=== PATIENT | female | born 1995 | race Caucasian/White ===

== ENCOUNTER 2023-07-07 06:45 | Observation (INO) | payer OTHER ==
--- OUTSIDE RECORDS SUMMARY | ~2023-07-07 | XMS | Continuity of Care Document ---
Demographics + + + | Address | [address] | | | [place] [address] | + + + | Preferred Language | Unknown | + + + | Marital Status | | + + + | Mu-Ism Affiliation | Unknown | + + + | Race | White | + + + | Ethnic Group | Unknown | + + + Author + + + | Author | [facility] | + + + | Organization | [facility] | + + + | Address | [address] [facility] | | | [place] [address] | + + + | Phone | | + + + Care Team Providers + + + + | Care Infant Toddler Lead Teacher Name | Role | Phone | + + + + Unavailable | Unavailable | + + + + Unavailable | Unavailable | + + + + Allergies and Intolerances + + + + + + | date | description | facility | reaction | severity | + + + + + + | (no date) | Hives / | [facility] | (no reaction) | (no severity) | | | Urticaria | [facility] | | | + + + + + + | (no date) | Cleocin | [facility] | (no reaction) | (no severity) | | | | [facility] | | | + + + + + + | (no date) | Hives | [facility] | (no reaction) | (no severity) | | | | [facility] | | | + + + + + + | (no date) | Shortness of | [facility] | (no reaction) | (no severity) | | | Breath / | [facility] | | | | | Dyspnea | | | | + + + + + + | (no date) | Shortness of | [facility] | (no reaction) | (no severity) | | | Breath | [facility] | | | + + + + + + | (no date) | Penicillin G | [facility] | (no reaction) | (no severity) | | | Benzathine | [facility] | | | | | [id number] U/ML | | | | | | Intramuscular | | | | | | Suspension | | | | + + + + + + | (no date) | Clindamycin | [facility] | (no reaction) | (no severity) | | | HCl 150 MG Oral | [facility] | | | | | Capsule | | | | + + + + + + Encounters No information. Functional Status No information. Immunizations No information. Medications + + + + | date | description | facility | + + + + | 2019-01-05 00:00 | ondansetron 4 MG | [facility] | | | Disintegrating Oral Tablet | | + + + + | 2019-04-13 00:00 | ondansetron 4 MG | [facility] | | | Disintegrating Oral Tablet | | + + + + | 2019-06-12 00:00 | ondansetron 4 MG | [facility] | | | Disintegrating Oral Tablet | | + + + + | 2019-07-14 00:00 | ondansetron 4 MG | [facility] | | | Disintegrating Oral Tablet | | + + + + | 2019-10-16 00:00 | ondansetron 4 MG | [facility] | | | Disintegrating Oral Tablet | | + + + + | 2020-02-21 00:00 | ondansetron 4 MG | [facility] | | | Disintegrating Oral Tablet | | + + + + | 2020-07-10 00:00 | ondansetron 4 MG | [facility] | | | Disintegrating Oral Tablet | | + + + + | 2021-06-18 00:00 | ondansetron 4 MG | [facility] | | | Disintegrating Oral Tablet | | + + + + | 2019-12-25 00:00 | methylphenidate | [facility] | | | hydrochloride 10 MG Oral | | | | Tablet | | + + + + | 2020-03-11 00:00 | methylphenidate | [facility] | | | hydrochloride 10 MG Oral | | | | Tablet | | + + + + | 2020-09-12 00:00 | methylphenidate | [facility] | | | hydrochloride 10 MG Oral | | | | Tablet | | + + + + | 2020-12-03 00:00 | methylphenidate | [facility] | | | hydrochloride 10 MG Oral | | | | Tablet | | + + + + | 2022-09-09 00:00 | phenazopyridine | [facility] | | | hydrochloride 100 MG Oral | | | | Tablet | | + + + + | 2021-05-14 00:00 | phenazopyridine | [facility] | | | hydrochloride 200 MG Oral | | | | Tablet [Pyridium] | | + + + + | 2020-09-19 00:00 | phenazopyridine | [facility] | | | hydrochloride 200 MG | | | | Delayed Release Oral Tablet | | | | | | + + + + | 2019-12-25 00:00 | Methylphenidate HCl 10 MG | [facility] | | | Oral Tablet | | + + + + | 2020-03-11 00:00 | Methylphenidate HCl 10 MG | [facility] | | | Oral Tablet | | + + + + | 2020-09-12 00:00 | Methylphenidate HCl 10 MG | [facility] | | | Oral Tablet | | + + + + | 2020-12-03 00:00 | Methylphenidate HCl 10 MG | [facility] | | | Oral Tablet | | + + + + | 2022-03-17 00:00 | Minocycline HCl 50 MG Oral | [facility] | | | Capsule | | + + + + | 2021-05-14 00:00 | Nitrofurantoin | [facility] | | | Macrocrystal 100 MG Oral | | | | Capsule | | + + + + | 2022-09-09 00:00 | Nitrofurantoin | [facility] | | | Macrocrystal 100 MG Oral | | | | Capsule | | + + + + | 2020-09-19 00:00 | nitrofurantoin, | [facility] | | | macrocrystals 25 MG / | | | | nitrofurantoin, monohydrate | | | | 75 MG Oral Capsule | | + + + + | 2021-05-14 00:00 | nitrofurantoin, | [facility] | | | macrocrystals 100 MG Oral | | | | Capsule | | + + + + | 2022-09-09 00:00 | nitrofurantoin, | [facility] | | | macrocrystals 100 MG Oral | | | | Capsule | | + + + + | 2022-09-09 00:00 | Phenazopyridine HCl 100 MG | [facility] | | | Oral Tablet | | + + + + | 2020-09-19 00:00 | Phenazopyridine HCl 200 MG | [facility] | | | Oral Tablet | | + + + + | 2020-12-03 00:00 | Propranolol HCl 10 MG Oral | [facility] | | | Tablet | | + + + + | 2021-10-02 00:00 | Propranolol HCl 10 MG Oral | [facility] | | | Tablet | | + + + + | 2021-05-14 00:00 | Pyridium 200 MG Oral | [facility] | | | Tablet | | + + + + | 2022-03-17 00:00 | minocycline 50 MG Oral | [facility] | | | Capsule | | + + + + | 2021-06-18 00:00 | Nurtec 75 MG Oral Tablet | [facility] | | | Disintegrating | | + + + + | 2021-12-25 00:00 | Nurtec 75 MG Oral Tablet | [facility] | | | Disintegrating | | + + + + | 2022-09-21 00:00 | Nurtec 75 MG Oral Tablet | [facility] | | | Disintegrating | | + + + + | 2021-10-02 00:00 | rizatriptan 10 MG Oral | [facility] | | | Tablet [Maxalt] | | + + + + | 2021-06-18 00:00 | Rimegepant 75 MG | [facility] | | | Disintegrating Oral Tablet | | | | [Nurtec] | | + + + + | 2021-12-25 00:00 | Rimegepant 75 MG | [facility] | | | Disintegrating Oral Tablet | | | | [Nurtec] | | + + + + | 2022-09-21 00:00 | Rimegepant 75 MG | [facility] | | | Disintegrating Oral Tablet | | | | [Nurtec] | | + + + + | 2021-06-18 00:00 | rimegepant 75 MG | [facility] | | | Disintegrating Oral Tablet | | | | [Nurtec] | | + + + + | 2021-12-25 00:00 | rimegepant 75 MG | [facility] | | | Disintegrating Oral Tablet | | | | [Nurtec] | | + + + + | 2022-09-21 00:00 | rimegepant 75 MG | [facility] | | | Disintegrating Oral Tablet | | | | [Nurtec] | | + + + + | 2020-09-19 00:00 | Nitrofurantoin Monohyd | [facility] | | | Macro 100 MG Oral Capsule | | + + + + | 2021-01-06 00:00 | sumatriptan 100 MG Oral | [facility] | | | Tablet | | + + + + | 2019-12-25 00:00 | tizanidine 2 MG Oral | [facility] | | | Tablet | | + + + + | 2020-06-14 00:00 | tizanidine 2 MG Oral | [facility] | | | Tablet | | + + + + | 2020-09-06 00:00 | tizanidine 2 MG Oral | [facility] | | | Tablet | | + + + + | 2021-01-06 00:00 | SUMAtriptan Succinate 100 | [facility] | | | MG Oral Tablet | | + + + + | 2019-12-25 00:00 | tiZANidine HCl 2 MG Oral | [facility] | | | Tablet | | + + + + | 2020-06-14 00:00 | tiZANidine HCl 2 MG Oral | [facility] | | | Tablet | | + + + + | 2020-09-06 00:00 | tiZANidine HCl 2 MG Oral | [facility] | | | Tablet | | + + + + | 2021-10-02 00:00 | Maxalt 10 MG Oral Tablet | [facility] | | | | | + + + + | 2019-10-16 00:00 | Ondansetron 4 MG Oral | [facility] | | | Tablet Disintegrating | | + + + + | 2020-02-21 00:00 | Ondansetron 4 MG Oral | [facility] | | | Tablet Disintegrating | | + + + + | 2020-07-10 00:00 | [facility]etron 4 MG Oral | [facility] | | | Tablet Disintegrating | | + + + + | 2021-06-18 00:00 | Ondansetron 4 MG Oral | [facility] | | | Tablet Disintegrating | | + + + + | 2019-01-05 00:00 | Ondansetron 4MG Oral | [facility] | | | Tablet Disintegrating | | + + + + | 2019-04-13 00:00 | Ondansetron 4MG Oral | [facility] | | | Tablet Disintegrating | | + + + + | 2019-06-12 00:00 | Ondansetron 4MG Oral | [facility] | | | Tablet Disintegrating | | + + + + | 2019-07-14 00:00 | Ondansetron 4MG Oral | [facility] | | | Tablet Disintegrating | | + + + + | 2022-06-22 00:00 | Adderall XR 20 MG Oral | [facility] | | | Capsule Extended Release 24 | | | | Hour | | + + + + | 2019-11-13 00:00 | Adderall XR 30 MG OR CP24 | [facility] | | | | | + + + + | 2019-09-18 00:00 | Adderall XR 30 MG Oral | [facility] | | | Capsule Extended Release 24 | | | | Hour | | + + + + | 2019-11-13 00:00 | Adderall XR 30 MG Oral | [facility] | | | Capsule Extended Release 24 | | | | Hour | | + + + + | 2019-12-25 00:00 | Adderall XR 30 MG Oral | [facility] | | | Capsule Extended Release 24 | | | | Hour | | + + + + | 2020-03-11 00:00 | Adderall XR 30 MG Oral | [facility] | | | Capsule Extended Release 24 | | | | Hour | | + + + + | 2020-04-08 00:00 | Adderall XR 30 MG Oral | [facility] | | | Capsule Extended Release 24 | | | | Hour | | + + + + | 2020-05-13 00:00 | Adderall XR 30 MG Oral | [facility] | | | Capsule Extended Release 24 | | | | Hour | | + + + + | 2020-06-14 00:00 | Adderall XR 30 MG Oral | [facility] | | | Capsule Extended Release 24 | | | | Hour | | + + + + | 2020-09-12 00:00 | Adderall XR 30 MG Oral | [facility] | | | Capsule Extended Release 24 | | | | Hour | | + + + + | 2020-12-03 00:00 | Adderall XR 30 MG Oral | [facility] | | | Capsule Extended Release 24 | | | | Hour | | + + + + | 2021-03-14 00:00 | Adderall XR 30 MG Oral | [facility] | | | Capsule Extended Release 24 | | | | Hour | | + + + + | 2021-06-18 00:00 | Adderall XR 30 MG Oral | [facility] | | | Capsule Extended Release 24 | | | | Hour | | + + + + | 2021-10-02 00:00 | Adderall XR 30 MG Oral | [facility] | | | Capsule Extended Release 24 | | | | Hour | | + + + + | 2021-12-25 00:00 | Adderall XR 30 MG Oral | [facility] | | | Capsule Extended Release 24 | | | | Hour | | + + + + | 2022-03-17 00:00 | Adderall XR 30 MG Oral | [facility] | | | Capsule Extended Release 24 | | | | Hour | | + + + + | 2022-06-02 00:00 | Adderall XR 30 MG Oral | [facility] | | | Capsule Extended Release 24 | | | | Hour | | + + + + | 2022-09-21 00:00 | Adderall XR 30 MG Oral | [facility] | | | Capsule Extended Release 24 | | | | Hour | | + + + + | 2022-12-04 00:00 | Adderall XR 30 MG Oral | [facility] | | | Capsule Extended Release 24 | | | | Hour | | + + + + | 2019-01-10 00:00 | Adderall XR 30MG Oral | [facility] | | | Capsule Extended Release 24 | | | | Hour | | + + + + | 2019-03-30 00:00 | Adderall XR 30MG Oral | [facility] | | | Capsule Extended Release 24 | | | | Hour | | + + + + | 2019-06-26 00:00 | Adderall XR 30MG Oral | [facility] | | | Capsule Extended Release 24 | | | | Hour | | + + + + | 2020-12-03 00:00 | propranolol hydrochloride | [facility] | | | 10 MG Oral Tablet | | + + + + | 2021-10-02 00:00 | propranolol hydrochloride | [facility] | | | 10 MG Oral Tablet | | + + + + | 2022-06-22 00:00 | 24 HR amphetamine aspartate | [facility] | | | 5 MG / amphetamine sulfate | | | | 5 MG / dextroamphetamine | | | | saccharate 5 MG / | | | | dextroamphetamine sulfate 5 | | | | MG Extended Release Oral | | | | Capsule [Adderall] | | + + + + | 2019-01-10 00:00 | 24 HR amphetamine aspartate | [facility] | | | 7.5 MG / amphetamine | | | | sulfate 7.5 MG / | | | | dextroamphetamine | | | | saccharate 7.5 MG / | | | | dextroamphetamine sulfate | | | | 7.5 MG Extended Release | | | | Oral Capsule [Adderall] | | + + + + | 2019-03-30 00:00 | 24 HR amphetamine aspartate | [facility] | | | 7.5 MG / amphetamine | | | | sulfate 7.5 MG / | | | | dextroamphetamine | | | | saccharate 7.5 MG / | | | | dextroamphetamine sulfate | | | | 7.5 MG Extended Release | | | | Oral Capsule [Adderall] | | + + + + | 2019-06-26 00:00 | 24 HR amphetamine aspartate | [facility] | | | 7.5 MG / amphetamine | | | | sulfate 7.5 MG / | | | | dextroamphetamine | | | | saccharate 7.5 MG / | | | | dextroamphetamine sulfate | | | | 7.5 MG Extended Release | | | | Oral Capsule [Adderall] | | + + + + | 2019-09-18 00:00 | 24 HR amphetamine aspartate | [facility] | | | 7.5 MG / amphetamine | | | | sulfate 7.5 MG / | | | | dextroamphetamine | | | | saccharate 7.5 MG / | | | | dextroamphetamine sulfate | | | | 7.5 MG Extended Release | | | | Oral Capsule [Adderall] | | + + + + | 2019-11-13 00:00 | 24 HR amphetamine aspartate | [facility] | | | 7.5 MG / amphetamine | | | | sulfate 7.5 MG / | | | | dextroamphetamine | | | | saccharate 7.5 MG / | | | | dextroamphetamine sulfate | | | | 7.5 MG Extended Release | | | | Oral Capsule [Adderall] | | + + + + | 2019-12-25 00:00 | 24 HR amphetamine aspartate | [facility] | | | 7.5 MG / amphetamine | | | | sulfate 7.5 MG / | | | | dextroamphetamine | | | | saccharate 7.5 MG / | | | | dextroamphetamine sulfate | | | | 7.5 MG Extended Release | | | | Oral Capsule [Adderall] | | + + + + | 2020-03-11 00:00 | 24 HR amphetamine aspartate | [facility] | | | 7.5 MG / amphetamine | | | | sulfate 7.5 MG / | | | | dextroamphetamine | | | | saccharate 7.5 MG / | | | | dextroamphetamine sulfate | | | | 7.5 MG Extended Release | | | | Oral Capsule [Adderall] | | + + + + | 2020-04-08 00:00 | 24 HR amphetamine aspartate | [facility] | | | 7.5 MG / amphetamine | | | | sulfate 7.5 MG / | | | | dextroamphetamine | | | | saccharate 7.5 MG / | | | | dextroamphetamine sulfate | | | | 7.5 MG Extended Release | | | | Oral Capsule [Adderall] | | + + + + | 2020-05-13 00:00 | 24 HR amphetamine aspartate | [facility] | | | 7.5 MG / amphetamine | | | | sulfate 7.5 MG / | | | | dextroamphetamine | | | | saccharate 7.5 MG / | | | | dextroamphetamine sulfate | | | | 7.5 MG Extended Release | | | | Oral Capsule [Adderall] | | + + + + | 2020-06-14 00:00 | 24 HR amphetamine aspartate | [facility] | | | 7.5 MG / amphetamine | | | | sulfate 7.5 MG / | | | | dextroamphetamine | | | | saccharate 7.5 MG / | | | | dextroamphetamine sulfate | | | | 7.5 MG Extended Release | | | | Oral Capsule [Adderall] | | + + + + | 2020-09-12 00:00 | 24 HR amphetamine aspartate | [facility] | | | 7.5 MG / amphetamine | | | | sulfate 7.5 MG / | | | | dextroamphetamine | | | | saccharate 7.5 MG / | | | | dextroamphetamine sulfate | | | | 7.5 MG Extended Release | | | | Oral Capsule [Adderall] | | + + + + | 2020-12-03 00:00 | 24 HR amphetamine aspartate | [facility] | | | 7.5 MG / amphetamine | | | | sulfate 7.5 MG / | | | | dextroamphetamine | | | | saccharate 7.5 MG / | | | | dextroamphetamine sulfate | | | | 7.5 MG Extended Release | | | | Oral Capsule [Adderall] | | + + + + | 2021-03-14 00:00 | 24 HR amphetamine aspartate | [facility] | | | 7.5 MG / amphetamine | | | | sulfate 7.5 MG / | | | | dextroamphetamine | | | | saccharate 7.5 MG / | | | | dextroamphetamine sulfate | | | | 7.5 MG Extended Release | | | | Oral Capsule [Adderall] | | + + + + | 2021-06-18 00:00 | 24 HR amphetamine aspartate | [facility] | | | 7.5 MG / amphetamine | | | | sulfate 7.5 MG / | | | | dextroamphetamine | | | | saccharate 7.5 MG / | | | | dextroamphetamine sulfate | | | | 7.5 MG Extended Release | | | | Oral Capsule [Adderall] | | + + + + | 2021-10-02 00:00 | 24 HR amphetamine aspartate | [facility] | | | 7.5 MG / amphetamine | | | | sulfate 7.5 MG / | | | | dextroamphetamine | | | | saccharate 7.5 MG / | | | | dextroamphetamine sulfate | | | | 7.5 MG Extended Release | | | | Oral Capsule [Adderall] | | + + + + | 2021-12-25 00:00 | 24 HR amphetamine aspartate | [facility] | | | 7.5 MG / amphetamine | | | | sulfate 7.5 MG / | | | | dextroamphetamine | | | | saccharate 7.5 MG / | | | | dextroamphetamine sulfate | | | | 7.5 MG Extended Release | | | | Oral Capsule [Adderall] | | + + + + | 2022-03-17 00:00 | 24 HR amphetamine aspartate | [facility] | | | 7.5 MG / amphetamine | | | | sulfate 7.5 MG / | | | | dextroamphetamine | | | | saccharate 7.5 MG / | | | | dextroamphetamine sulfate | | | | 7.5 MG Extended Release | | | | Oral Capsule [Adderall] | | + + + + | 2022-06-02 00:00 | 24 HR amphetamine aspartate | [facility] | | | 7.5 MG / amphetamine | | | | sulfate 7.5 MG / | | | | dextroamphetamine | | | | saccharate 7.5 MG / | | | | dextroamphetamine sulfate | | | | 7.5 MG Extended Release | | | | Oral Capsule [Adderall] | | + + + + | 2022-09-21 00:00 | 24 HR amphetamine aspartate | [facility] | | | 7.5 MG / amphetamine | | | | sulfate 7.5 MG / | | | | dextroamphetamine | | | | saccharate 7.5 MG / | | | | dextroamphetamine sulfate | | | | 7.5 MG Extended Release | | | | Oral Capsule [Adderall] | | + + + + | 2022-12-04 00:00 | 24 HR amphetamine aspartate | [facility] | | | 7.5 MG / amphetamine | | | | sulfate 7.5 MG / | | | | dextroamphetamine | | | | saccharate 7.5 MG / | | | | dextroamphetamine sulfate | | | | 7.5 MG Extended Release | | | | Oral Capsule [Adderall] | | + + + + | 2019-01-10 00:00 | Mirena 52MCG/24HR | [facility] | | | Intrauterine Intrauterine | | | | device | | + + + + | 2019-01-05 00:00 | Dextroamphetamine Sulfate | [facility] | | | ER 30mg Mouth/Throat | | | | Capsule | | + + + + | 2019-01-05 00:00 | SUMAtriptan 100mg Oral | [facility] | | | Tablet | | + + + + | 2019-07-25 00:00 | SUMAtriptan 100mg Oral | [facility] | | | Tablet | | + + + + Problems + + + + | date | description | facility | + + + + | 2023-02-12 10:53 | ENCOUNTER FOR | [facility] | | | SCREENING FOR UNCERTAIN | | | | DATES | | + + + + | 2023-02-12 10:53 | 8 WEEKS GESTATION OF | [facility] | | | | | + + + + | 2023-02-12 10:53 | 10 WEEKS GESTATION OF | [facility] | | | | | + + + + | 2023-04-29 11:43 | ENCNTR FOR SUPRVSN OF | [facility] | | | NORMAL FIRST PREG, SECOND | | | | TRIMESTER | | + + + + | 2023-04-29 11:43 | ENCNTR FOR SUPRVSN OF | [facility] | | | NORMAL FIRST PREG, | | + + + + | 2023-04-29 11:43 | 16 WEEKS GESTATION OF | [facility] | | | | | + + + + | 2023-04-29 12:00 | ENCNTR FOR SUPRVSN OF | [facility] | | | NORMAL FIRST PREG, | | + + + + | 2023-04-29 12:00 | 16 WEEKS GESTATION OF | [facility] | | | | | + + + + | 2023-06-04 09:47 | LOW LYING PLACENTA NOS OR | [facility] | | | WITHOUT HEMOR, SECOND | | | | TRIMESTER | | + + + + | 2023-06-04 09:47 | LOW LYING PLACENTA NOS OR | [facility] | | | WITHOUT HEMOR, | | + + + + | 2023-06-04 09:47 | 26 WEEKS GESTATION OF | [facility] | | | | | + + + + | 2023-06-04 10:00 | LOW LYING PLACENTA NOS OR | [facility] | | | WITHOUT HEMOR, | | + + + + Procedures + + + + | date | description | facility | + + + + | 2021-12-31 00:00 | COMPREHENSIVE METABOLIC | [facility] | | | PANEL - EXTERNAL | [facility] Lab | + + + + | 2021-12-31 00:00 | CBC WITH AUTO DIFFERENTIAL | [facility] | | | - EXTERNAL | [facility] | + + + + | 2021-12-31 00:00 | VITAMIN D 25-OH - EXTERNAL | [facility] | | | | [facility] | + + + + | 2021-12-31 00:00 | THYROID PROFILE - EXTERNAL | [facility] | | | | [facility] | + + + + | 2021-12-31 00:00 | LIPID PANEL - EXTERNAL | [facility] | | | | [facility] | + + + + | 2019-12-25 00:00 | History of surgery | [facility] | | | (situation) | | + + + + | 2019-12-25 00:00 | history of prior surgery | [facility] | | | [For Hx of Tx, use H | | | | prefix] | | + + + + Results/Labs +--------+--------+ +---------+--------+---------+ | test | date | facility | value | unit | notes | +--------+--------+ +---------+--------+---------+ + + | Result panel 1 | + + + + + + + + + | No Results | (no date) | [facility] | No Results | (missing) | (missing) | | | | [facility] | | | | | | | , [facility] | | | | + + + + + + + + + | Result panel 2 | + + + + + + + + + | No Results | (no date) | [facility] | No Results | (missing) | (missing) | | | | [facility] | | | | | | | [facility] | | | | + + + + + + + + + | Result panel 3 | + + + + + + + + + | Specimen | (no date) | [facility] | (missing) | (missing) | (missing) | | collection | | Good | | | | | (procedure) | | [facility] | | | | | [facility] | | | | | | | | | | | + + + + + + + + + | Result panel 4 | + + + + + + + + + | Specimen | (no date) | [facility] | (missing) | (missing) | (missing) | | collection | | Good | | | | | (procedure) | | [facility] | [facility] | [facility] | | | | | | | | | | | + + + + + + + + + | Result panel 5 | + + + + + + + + + | Specimen | (no date) | [facility] | (missing) | (missing) | (missing) | | collection | | Good | | | | | (procedure) | | [facility] | | | [facility] | | | | | | | | | | | + + + + + + + + + | Result panel 6 | + + + + + + + + + | No Results | (no date) | [facility] | No Results | (missing) | (missing) | | | | MEDICAL | | | | | | | [facility] | | | | + + + + + + + + + | Result panel 7 | + + + + + + + + + | No Results | (no date) | [facility] | No Results | (missing) | (missing) | | | | MED[facility] | | | | | | | [facility] | | | | + + + + + + + + + | Result panel 8 | + + + + + + + + + | Specimen | (no date) | [facility] | (missing) | (missing) | (missing) | | collection | | Good | | | | | (procedure) | | [facility] | | | | [facility] | | | | | | | | | | | + + + + + + + + + | Result panel 9 | + + + + + + + + + | Specimen | (no date) | [facility] | (missing) | (missing) | (missing) | | collection | | Good | | | | | (procedure) | | [facility] | | | | | | | | | | | + + + + + + + + + | Result panel 10 | + + +-------+ + +--------+--------+ + | Hgb | 2021-12-31 | [facility] | 14.0 | g/dL | (missing) | | | 15:56 | Good | | | | | | | [facility] | [facility] | | | | | | | | | | | +-------+ + +--------+--------+ + + + | Result panel 11 | + + +-------+ + +--------+-----+ + | HCT | 2021-12-31 | [facility] | 40.8 | % | (missing) | | | 15:56 | Good | | | | | | | [facility] | | | | | | | | | | | +-------+ + +--------+-----+ + + + | Result panel 12 | + + + + + +--------+------+ + | Mean | 2021-12-31 | [facility] | 87.5 | fl | (missing) | | Corpuscular | 15:56 | Good | | | | | Volume | | [facility] | | | | | [facility] | | | | | | | | | | | + + + +--------+------+ + + + | Result panel 13 | + + + + + +--------+------+ + | Mean | 2021-12-31 | [facility] | 30.0 | pg | (missing) | | Corpuscular | 15:56 | Good | | | | | Hemoglobin | | [facility] | | [facility] | | [facility] | | | | | | | | | | | + + + +--------+------+ + + + | Result panel 14 | + + + + + +--------+--------+ + | Mean | 2021-12-31 | [facility] | 34.3 | g/dL | (missing) | | Corpuscular | 15:56 | Good | | | | | Hemoglobin | | [facility] | [facility] | [facility] | [facility] | | | | | | | | | | | + + + +--------+--------+ + + + | Result panel 15 | + + + + + +--------+-----+ + | Red Cell | 2021-12-31 | [facility] | 13.0 | % | (missing) | | Distribution | 15:56 | Good | | | | | Width | | [facility] | | | | | | [facility] | | | | | | | | | | | + + + +--------+-----+ + + + | Result panel 16 | + + + + + +-------+--------+ + | Platelet | 2021-12-31 | [facility] | 226 | K/uL | (missing) | | Count | 15:56 | [facility] | | | | | | | [facility] | | | | | | | | | | | + + + +-------+--------+ + + + | Result panel 17 | + + + + + +--------+-----+ + | Neutrophils | 2021-12-31 | [facility] | 55.6 | % | (missing) | | Auto % | 15:56 | [facility] | | | | | | | [facility] | | | | | | | | | | | + + + +--------+-----+ + + + | Result panel 18 | + + + + + +--------+-----+ + | Lymphocytes | 2021-12-31 | [facility] | 33.1 | % | (missing) | | Auto % | 15:56 | [facility] | | | | | | | [facility] | | | | | | | | | | | + + + +--------+-----+ + + + | Result panel 19 | + + + + + +-------+-----+ + | Monocytes | 2021-12-31 | [facility] | 7.4 | % | (missing) | | Auto % | 15:56 | [facility] | | | | | | | [facility] | | | | | | | | | | | + + + +-------+-----+ + + + | Result panel 20 | + + + + + +-------+-----+ + | Eosinophils | 2021-12-31 | [facility] | 3.4 | % | (missing) | | Auto % | 15:56 | [facility] | | | | | | | [facility] | | | | | | | | | | + + + +-------+-----+ + + + | Result panel 21 | + + + + + +-------+-----+ + | Basophils | 2021-12-31 | [facility] | 0.5 | % | (missing) | | Auto % | 15:56 | [facility] | | | | | | | [facility] | | | | | | | | | | | + + + +-------+-----+ + + + | Result panel 22 | + + + + + +-------+--------+ + | Neutrophils | 2021-12-31 | [facility] | 3.0 | K/uL | (missing) | | Auto # | 15:56 | [facility] | | | | | | | [facility] | | | | | | | | | | + + + +-------+--------+ + + + | Result panel 23 | + + + + + +-------+--------+ + | Lymphocytes | 2021-12-31 | [facility] | 1.8 | K/uL | (missing) | | Auto # | 15:56 | [facility] | | | | | | | [facility] | | | | | | | | | | | + + + +-------+--------+ + + + | Result panel 24 | + + + + + +-------+--------+ + | Monocytes | 2021-12-31 | [facility] | 0.4 | K/uL | (missing) | | Auto # | 15:56 | [facility] | | | | | | | [facility] | | | | | | | | | | + + + +-------+--------+ + + + | Result panel 25 | + + + + + +-------+--------+ + | Eosinophils | 2021-12-31 | [facility] | 0.2 | K/uL | (missing) | | Auto # | 15:56 | [facility] | | | | | | | [facility] | | | | | | | | | | | + + + +-------+--------+ + + + | Result panel 26 | + + + + + +-------+--------+ + | Basophils | 2021-12-31 | [facility] | 0.0 | K/uL | (missing) | | Auto # | 15:56 | [facility] | | | | | | | [facility] | | | | | | | | | | | + + + +-------+--------+ + + + | Result panel 27 | + + + + + + + + + | | 2021-12-31 | [facility] | Abnormal | (missing) | (missing) | | (unavailable | 15:56 | Good | | | | | ) | | [facility] | | | | | | | | | | | + + + + + + + + + | Result panel 28 | + + +-------+ + +-------+--------+ + | WBC | 2021-12-31 | [facility] | 5.4 | K/uL | (missing) | | | 15:56 | [facility] | | | | | | | [facility] | | | | | | | | | | | +-------+ + +-------+--------+ + + + | Result panel 29 | + + +-------+ + +-------+ + + | RBC | 2021-12-31 | [facility] | 4.7 | (missing) | (missing) | | | 15:56 | [facility] | | | | | | | [facility] | | | | | | | | | | | +-------+ + +-------+ + + + + | Result panel 30 | + + + + + +-------+ + + | Sodium Lvl | 2021-12-31 | [facility] | 142 | mmol/L | (missing) | | | 16:50 | [facility] | | | | | | | [facility] | | | | | | | | | | | + + + +-------+ + + + + | Result panel 31 | + + + + + +-------+ + + | Potassium | 2021-12-31 | [facility] | 4.0 | (missing) | (missing) | | Lvl | 16:50 | [facility] | | | | | | | [facility] | | | | | | | | | | | + + + +-------+ + + + + | Result panel 32 | + + + + + +-------+ + + | Chloride | 2021-12-31 | [facility] | 105 | mmol/L | (missing) | | Level | 16:50 | [facility] | | | | | | | [facility] | | | | | | | | | | | + + + +-------+ + + + + | Result panel 33 | + + +-------+ + +------+ + + | CO2 | 2021-12-31 | [facility] | 29 | mmol/L | (missing) | | | 16:50 | [facility] | | | | | | | [facility] | | | | | | | | | | | +-------+ + +------+ + + + + | Result panel 34 | + + + + + +-------+ + + | Anion Gap | 2021-12-31 | [facility] | 8.0 | (missing) | (missing) | | | 16:50 | [facility] | | | | | | | [facility] | | | | | | | | | | | + + + +-------+ + + + + | Result panel 35 | + + + + + +------+---------+ + | Glucose, | 2021-12-31 | [facility] | 92 | mg/dL | (missing) | | Random | 16:50 | [facility] | | | | | | | [facility] | | | | | | | | | | | + + + +------+---------+ + + + | Result panel 36 | + + + + + +------+---------+ + | Blood Urea | 2021-12-31 | [facility] | 14 | mg/dL | (missing) | | Nitrogen | 16:50 | [facility] | | | | | | | [facility] | | | | | | | | | | | + + + +------+---------+ + + + | Result panel 37 | + + + + + +--------+---------+ + | Creatinine, | 2021-12-31 | [facility] | 0.75 | mg/dL | (missing) | | Serum | 16:50 | [facility] | | | | | | | [facility] | | | | | | | | | | | + + + +--------+---------+ + + + | Result panel 38 | + + + + + +-------+ + + | GFR | 2021-12-31 | [facility] | >60 | (missing) | (missing) | | Estimated | 16:50 | [facility] | | | | | | | [facility] | | | | | | | | | | | + + + +-------+ + + + + | Result panel 39 | + + + + + +-------+---------+ + | Calcium Lvl | 2021-12-31 | [facility] | 9.8 | mg/dL | (missing) | | | 16:50 | [facility] | | | | | | | [facility] | | | | | | | | | | | + + + +-------+---------+ + + + | Result panel 40 | + + + + + +-------+---------+ + | Corrected | 2021-12-31 | [facility] | 9.3 | mg/dL | (missing) | | Calcium for | 16:50 | Good | | | | | Alb | | [facility] | [facility] | | | | | | | | | | | + + + +-------+---------+ + + + | Result panel 41 | + + + + + +-------+ + + | Total | 2021-12-31 | [facility] | 7.1 | (missing) | (missing) | | Protein | 16:50 | [facility] | | | | | | | [facility] | | | | | | | | | | | + + + +-------+ + + + + | Result panel 42 | + + + + + +-------+ + + | Albumin | 2021-12-31 | [facility] | 4.6 | (missing) | (missing) | | | 16:50 | [facility] | | | | | | | [facility] | | | | | | | | | | | + + + +-------+ + + + + | Result panel 43 | + + + + + +-------+ + + | Globulin | 2021-12-31 | [facility] | 2.5 | (missing) | (missing) | | | 16:50 | [facility] | | | | | | | [facility] | | | | | | | | | | | + + + +-------+ + + + + | Result panel 44 | + + + + + +-------+ + + | | 2021-12-31 | [facility] | 1.8 | (missing) | (missing) | | Albumin/Glob | 16:50 | Good | | | | | ulin Ratio | | [facility] | | | | | | | | | | | + + + +-------+ + + + + | Result panel 45 | + + + + + +-------+---------+ + | Bilirubin | 2021-12-31 | [facility] | 0.8 | mg/dL | (missing) | | Total | 16:50 | Good | | | | | | | [facility] | [facility] | | | | | | | | | | | + + + +-------+---------+ + + + | Result panel 46 | + + + + + +------+ + + | AST/SGOT | 2021-12-31 | [facility] | 24 | (missing) | (missing) | | | 16:50 | Good | | | | | | | [facility] | | | | | | | | | | | + + + +------+ + + + + | Result panel 47 | + + + + + +------+ + + | ALT/SGPT | 2021-12-31 | [facility] | 16 | (missing) | (missing) | | | 16:50 | Good | | | | | | | [facility] | | | | | | | | | | | + + + +------+ + + + + | Result panel 48 | + + + + + +------+ + + | Alkaline | 2021-12-31 | [facility] | 52 | (missing) | (missing) | | Phosphatase | 16:50 | Good | | | | | | | [facility] | | | | | | | | | | | + + + +------+ + + + + | Result panel 49 | + + + + + +------+---------+ + | | 2021-12-31 | [facility] | 61 | mg/dL | (missing) | | Triglyceride | 16:50 | Good | | | | | s Level | | [facility] | | | | | | | | | | | + + + +------+---------+ + + + | Result panel 50 | + + + + + +-------+---------+ + | Cholesterol | 2021-12-31 | [facility] | 168 | mg/dL | (missing) | | | 16:50 | Good | | | | | | | [facility] | | | | | | | | | | | + + + +-------+---------+ + + + | Result panel 51 | + + +--------+ + +------+---------+ + | VLDL | 2021-12-31 | [facility] | 12 | mg/dL | (missing) | | | 16:50 | [facility] | | | | | | | [facility] | | | | | | | | | | | +--------+ + +------+---------+ + + + | Result panel 52 | + + +-------+ + +-------+---------+ + | LDL | 2021-12-31 | [facility] | 100 | mg/dL | (missing) | | | 16:50 | [facility] | | | | | | | [facility] | | | | | | | | | | | +-------+ + +-------+---------+ + + + | Result panel 53 | + + + + + +------+---------+ + | HDL | 2021-12-31 | [facility] | 56 | mg/dL | (missing) | | Cholesterol | 16:50 | Good | | | | | | | [facility] | | | | | | | | | | | + + + +------+---------+ + + + | Result panel 54 | + + + + + +-------+---------+ + | Non-HDL | 2021-12-31 | [facility] | 112 | mg/dL | (missing) | | Cholesterol | 16:50 | Good | | | | | | | [facility] | | | | | | | | | | | + + + +-------+---------+ + + + | Result panel 55 | + + + + + +-------+ + + | Chol/HDL | 2021-12-31 | [facility] | 3.0 | (missing) | (missing) | | Ratio | 16:50 | Good | | | | | | | [facility] | | | | | | | | | | | + + + +-------+ + + + + | Result panel 56 | + + +-------+ + +--------+ + + | TSH | 2021-12-31 | [facility] | 1.19 | (missing) | (missing) | | | 16:50 | [facility] | | | | | | | [facility] | | | | | | | | | | | +-------+ + +--------+ + + + + | Result panel 57 | + + + + + +---------+---------+ + | Free T4 | 2021-12-31 | [facility] | 0.980 | ng/dL | (missing) | | | 16:50 | [facility] | | | | | | | [facility] | | | | | | | | | | | + + + +---------+---------+ + + + | Result panel 58 | + + + + + +--------+---------+ + | Vitamin D | 2021-12-31 | [facility] | 35.5 | ng/mL | (missing) | | 25-OH | 16:50 | Good | | | | | | | [facility] | | | | | | | | | | | + + + +--------+---------+ + + + | URINALYSIS w/C+S IF INDICATED | + + + + + + + + + | COLLECTION | 2020-09-19 | [facility] | CLEAN CATCH | (missing) | (missing) | | TYPE | 08:13 | MEDICAL | | | | | | | [facility] | | | | + + + + + + + | CLARITY | 2020-09-19 | [facility] | CLOUDY | (missing) | (missing) | | | 08:13 | MEDICAL | | | | | | | [facility] | | | | + + + + + + + | GLUCOSE | 2020-09-19 | [facility] | NORMAL | (missing) | (missing) | | | 08:13 | MEDICAL | | | | | | | [facility] | | | | + + + + + + + | RBC'S | 2020-09-19 | [facility] | >50 /hpf | (missing) | (missing) | | | 08:13 | MED[facility] | | | | | | | [facility] | | | | + + + + + + + | KETONE | 2020-09-19 | [facility] | NEGATIVE | (missing) | (missing) | | | 08:13 | MEDICAL | | | | | | | [facility] | | | | + + + + + + + | PROTEIN | 2020-09-19 | [facility] | NEGATIVE | (missing) | (missing) | | | 08:13 | MEDICAL | mg/dL | | | | | | [facility] | | | | + + + + + + + | BACTERIA | 2020-09-19 | [facility] | 2+ /hpf | (missing) | (missing) | | | 08:13 | MEDICAL | | | | | | | [facility] | | | | + + + + + + + | BILIRUBIN | 2020-09-19 | [facility] | NEGATIVE | (missing) | (missing) | | | 08:13 | MEDICAL | | | | | | | [facility] | | | | + + + + + + + | COLOR | 2020-09-19 | [facility] | YELLOW | (missing) | (missing) | | | 08:13 | MEDICAL | | | | | | | [facility] | | | | + + + + + + + | CRYSTALS | 2020-09-19 | [facility] | NEGATIVE | (missing) | (missing) | | | 08:13 | MEDICAL | /hpf | | | | | | [facility] | | | | + + + + + + + | EPITHELIAL | 2020-09-19 | [facility] | SEE COMMENT | (missing) | (missing) | | | 08:13 | MEDICAL | /lpf | | | | | | , P[facility] | | | | + + + + + + + | BLOOD/HGB | 2020-09-19 | [facility] | NEGATIVE | (missing) | (missing) | | | 08:13 | MEDICAL | | | | | | | , P[facility] | | | | + + + + + + + | LEUK | 2020-09-19 | [facility] | NEGATIVE | (missing) | (missing) | | ESTERASE | 08:13 | MEDICAL | | | | | | | [facility] | | | | + + + + + + + | NITRITE | 2020-09-19 | [facility] | NEGATIVE | (missing) | (missing) | | | 08:13 | MEDICAL | | | | | | | [facility] | | | | + + + + + + + | PH | 2020-09-19 | [facility] | 8 | (missing) | (missing) | | | 08:13 | MEDICAL | | | | | | | [facility] | | | | + + + + + + + | SPECIFIC | 2020-09-19 | [facility] | 1.020 | (missing) | (missing) | | GRAVITY | 08:13 | MEDICAL | | | | | | | [facility] | | | | + + + + + + + | | 2020-09-19 | [facility] | NORMAL | (missing) | (missing) | | UROBILINOGEN | 08:13 | MEDICAL | mg/dL | | | | | | [facility] | | | | + + + + + + + | WBC'S | 2020-09-19 | [facility] | >50 /hpf | (missing) | (missing) | | | 08:13 | MEDICAL | | | | | | | [facility] | | | | + + + + + + + | CASTS | 2020-09-19 | [facility] | NEGATIVE | (missing) | (missing) | | | 08:13 | MEDICAL | /lpf | | | | | | [facility] | | | | + + + + + + + + + | URINALYSIS w/C+S IF INDICATED | + + + + + + + + + | COLLECTION | 2022-09-09 | [facility] | CLEAN CATCH | (missing) | (missing) | | TYPE | 08:12 | MEDICAL | | | | | | | [facility] | | | | + + + + + + + | CLARITY | 2022-09-09 | [facility] | CLOUDY | (missing) | (missing) | | | 08:12 | MEDICAL | | | | | | | [facility] | | | | + + + + + + + | GLUCOSE | 2022-09-09 | [facility] | SMALL | (missing) | (missing) | | | 08:12 | MEDICAL | | | | | | | [facility] | | | | + + + + + + + | RBC'S | 2022-09-09 | [facility] | 5 | /hpf | (missing) | | | 08:12 | MED[facility] | | | | | | | [facility] | | | | + + + + + + + | KETONE | 2022-09-09 | [facility] | TRACE | (missing) | (missing) | | | 08:12 | [facility] | | | | | | | [facility] | | | | + + + + + + + | PROTEIN | 2022-09-09 | [facility] | 100 | mg/dL | (missing) | | | 08:12 | MEDICAL | | | | | | | [facility] | | | | + + + + + + + | BACTERIA | 2022-09-09 | [facility] | 2+ /hpf | (missing) | (missing) | | | 08:12 | MEDICAL | | | | | | | [facility] | | | | + + + + + + + | BILIRUBIN | 2022-09-09 | [facility] | NEGATIVE | (missing) | (missing) | | | 08:12 | MEDICAL | | | | | | | [facility] | | | | + + + + + + + | COLOR | 2022-09-09 | [facility] | ORANGE | (missing) | (missing) | | | 08:12 | MEDICAL | | | | | | | [facility] | | | | + + + + + + + | CRYSTALS | 2022-09-09 | [facility] | NEGATIVE | (missing) | (missing) | | | 08:12 | MEDICAL | /hpf | | | | | | [facility] | | | | + + + + + + + | EPITHELIAL | 2022-09-09 | [facility] | SQUAMOUS 4+ | (missing) | (missing) | | | 08:12 | MEDICAL | /lpf | | | | | | [facility] | | | | + + + + + + + | BLOOD/HGB | 2022-09-09 | [facility] | TRACE | (missing) | (missing) | | | 08:12 | MEDICAL | | | | | | | [facility] | | | | + + + + + + + | LEUK | 2022-09-09 | [facility] | LARGE | (missing) | (missing) | | ESTERASE | 08:12 | MEDICAL | | | | | | | , [facility] | | | | + + + + + + + | NITRITE | 2022-09-09 | [facility] | POSITIVE | (missing) | (missing) | | | 08:12 | MEDICAL | | | | | | | , [facility] | | | | + + + + + + + | PH | 2022-09-09 | [facility] | 6 | (missing) | (missing) | | | 08:12 | MEDICAL | | | | | | | , [facility] | | | | + + + + + + + | SPECIFIC | 2022-09-09 | [facility] | 1.015 | (missing) | (missing) | | GRAVITY | 08:12 | MEDICAL | | | | | | | , [facility] | | | | + + + + + + + | | 2022-09-09 | [facility] | >4 mg/dL | (missing) | (missing) | | UROBILINOGEN | 08:12 | MEDICAL | | | | | | | , [facility] | | | | + + + + + + + | WBC'S | 2022-09-09 | [facility] | >50 /hpf | (missing) | (missing) | | | 08:12 | MEDICAL | | | | | | | [facility] | | | | + + + + + + + | CASTS | 2022-09-09 | [facility] | NEGATIVE | (missing) | (missing) | | | 08:12 | MEDICAL | /lpf | | | | | | [facility] | | | | + + + + + + + Social History + + + + | date | description | facility | + + + + | 2020-12-04 00:00 | Unknown if ever smoked | [facility] | | | | | + + + + | 2020-12-04 00:00 | Ex-smoker (finding) | [facility] | | | | | + + + + | 2021-12-25 00:00 | Unknown if ever smoked | [facility] | | | | | + + + + | 2021-12-25 00:00 | Ex-smoker (finding) | [facility] | | | | | + + + + | 2022-03-18 00:00 | Unknown if ever smoked | [facility] | | | | | + + + + | 2022-03-18 00:00 | Ex-smoker (finding) | [facility] | | | | | + + + + | 2022-03-27 00:00 | Tobacco smoking | [facility] | | | consumption unknown | [facility] | + + + + | 2022-06-23 00:00 | Unknown if ever smoked | [facility] | | | | | + + + + | 2022-06-23 00:00 | Ex-smoker (finding) | [facility] | | | | | + + + + | 2022-09-10 00:00 | Unknown if ever smoked | [facility] | | | | | + + + + | 2022-09-10 00:00 | Ex-smoker (finding) | [facility] | | | | | + + + + | 2022-09-21 00:00 | Unknown if ever smoked | [facility] | | | | | + + + + | 2022-09-21 00:00 | Ex-smoker (finding) | [facility] | | | | | + + + + | 2022-12-05 00:00 | Unknown if ever smoked | [facility] | | | | | + + + + | 2022-12-05 00:00 | Ex-smoker (finding) | [facility] | | | | | + + + + Vital Signs + + + + + | date | measurement | value | units | + + + + + | 2019-12-25 00:00 | BMI | 28.5 | kg/m2 | + + + + + | 2019-12-25 00:00 | BP_diastolic | 72 | mmHg | + + + + + | 2019-12-25 00:00 | BP_systolic | 122 | mmHg | + + + + + | 2019-12-25 00:00 | BSA | 1.85 | m2 | + + + + + | 2019-12-25 00:00 | heart_rate | 104 | /min | + + + + + | 2019-12-25 00:00 | heart_rate | 1|1| | completed | + + + + + | 2019-12-25 00:00 | height_metric | 165.1 | cm | + + + + + | 2019-12-25 00:00 | height_standard | 65 | in | + + + + + | 2019-12-25 00:00 | weight_metric | 77.68 | kg | + + + + + | 2019-12-25 00:00 | weight_standard | 171.25 | lb | + + + + + | 2020-06-14 00:00 | BP_diastolic | 74 | mmHg | + + + + + | 2020-06-14 00:00 | BP_systolic | 122 | mmHg | + + + + + 2020-06-14 00:00 | height_metric | 165.1 | cm | + + + + + | 2020-06-14 00:00 | height_standard | 65 | in | + + + + + | 2020-09-12 00:00 | BMI | 26.8 | kg/m2 | + + + + + | 2020-09-12 00:00 | BP_diastolic | 60 | mmHg | + + + + + | 2020-09-12 00:00 | BP_systolic | 120 | mmHg | + + + + + | 2020-09-12 00:00 | BSA | 1.80 | m2 | + + + + + | 2020-09-12 00:00 | heart_rate | 1|1| | completed | + + + + + | 2020-09-12 00:00 | heart_rate | 84 | /min | + + + + + | 2020-09-12 00:00 | height_metric | 165.1 | cm | + + + + + | 2020-09-12 00:00 | height_standard | 65 | in | + + + + + | 2020-09-12 00:00 | weight_metric | 73.03 | kg | + + + + + | 2020-09-12 00:00 | weight_standard | 161 | lb | + + + + + | 2020-09-19 00:00 | BMI | 26.8 | kg/m2 | + + + + + | 2020-09-19 00:00 | BP_diastolic | 78 | mmHg | + + + + + | 2020-09-19 00:00 | BP_systolic | 128 | mmHg | + + + + + | 2020-09-19 00:00 | BSA | 1.80 | m2 | + + + + + | 2020-09-19 00:00 | heart_rate | 1|1| | completed | + + + + + | 2020-09-19 00:00 | heart_rate | 92 | /min | + + + + + | 2020-09-19 00:00 | height_metric | 165.1 | cm | + + + + + | 2020-09-19 00:00 | height_standard | 65 | in | + + + + + | 2020-09-19 00:00 | respiration_rate | 16 | /min | + + + + + | 2020-09-19 00:00 | weight_metric | 73.12 | kg | + + + + + | 2020-09-19 00:00 | weight_standard | 161.2 | lb | + + + + + | 2020-12-03 00:00 | BMI | 25.8 | kg/m2 | + + + + + | 2020-12-03 00:00 | BSA | 1.78 | m2 | + + + + + | 2020-12-03 00:00 | heart_rate | 95 | /min | + + + + + | 2020-12-03 00:00 | height_metric | 165.1 | cm | + + + + + | 2020-12-03 00:00 | height_standard | 65 | in | + + + + + | 2020-12-03 00:00 | weight_metric | 70.31 | kg | + + + + + | 2020-12-03 00:00 | weight_standard | 155 | lb | + + + + + | 2021-03-14 00:00 | BMI | 25.3 | kg/m2 | + + + + + | 2021-03-14 00:00 | BSA | 1.76 | m2 | + + + + + | 2021-03-14 00:00 | heart_rate | 95 | /min | + + + + + | 2021-03-14 00:00 | height_metric | 165.1 | cm | + + + + + | 2021-03-14 00:00 | height_standard | 65 | in | + + + + + | 2021-03-14 00:00 | weight_metric | 68.95 | kg | + + + + + | 2021-03-14 00:00 | weight_standard | 152 | lb | + + + + + | 2021-05-14 00:00 | BMI | 25.3 | kg/m2 | + + + + + | 2021-05-14 00:00 | BSA | 1.76 | m2 | + + + + + | 2021-05-14 00:00 | height_metric | 165.1 | cm | + + + + + | 2021-05-14 00:00 | height_standard | 65 | in | + + + + + | 2021-05-14 00:00 | temperature_metric | 36.67 | C | | | | | | + + + + + | 2021-05-14 00:00 | | 98 | F | | | temperature_standar | | | | | d | | | + + + + + | 2021-05-14 00:00 | weight_metric | 68.95 | kg | + + + + + | 2021-05-14 00:00 | weight_standard | 152 | lb | + + + + + | 2021-06-18 00:00 | BMI | 27.0 | kg/m2 | + + + + + | 2021-06-18 00:00 | BP_diastolic | 68 | mmHg | + + + + + | 2021-06-18 00:00 | BP_systolic | 116 | mmHg | + + + + + | 2021-06-18 00:00 | BSA | 1.81 | m2 | + + + + + | 2021-06-18 00:00 | heart_rate | 1|1| | completed | + + + + + | 2021-06-18 00:00 | heart_rate | 76 | /min | + + + + + | 2021-06-18 00:00 | height_metric | 165.1 | cm | + + + + + | 2021-06-18 00:00 | height_standard | 65 | in | + + + + + | 2021-06-18 00:00 | o2_saturation | 98 | % | + + + + + | 2021-06-18 00:00 | respiration_rate | 12 | /min | + + + + + | 2021-06-18 00:00 | temperature_metric | 36.5 | C | | | | | | + + + + + | 2021-06-18 00:00 | | 97.7 | F | | | temperature_standar | | | | | d | | | + + + + + | 2021-06-18 00:00 | weight_metric | 73.48 | kg | + + + + + | 2021-06-18 00:00 | weight_standard | 162 | lb | + + + + + | 2021-10-02 00:00 | BMI | 27.1 | kg/m2 | + + + + + | 2021-10-02 00:00 | BSA | 1.81 | m2 | + + + + + | 2021-10-02 00:00 | heart_rate | 82 | /min | + + + + + | 2021-10-02 00:00 | height_metric | 165.1 | cm | + + + + + | 2021-10-02 00:00 | height_standard | 65 | in | + + + + + | 2021-10-02 00:00 | weight_metric | 73.94 | kg | + + + + + | 2021-10-02 00:00 | weight_standard | 163 | lb | + + + + + | 2021-12-25 00:00 | BMI | 29.3 | kg/m2 | + + + + + | 2021-12-25 00:00 | BP_diastolic | 78 | mmHg | + + + + + | 2021-12-25 00:00 | BP_systolic | 122 | mmHg | + + + + + | 2021-12-25 00:00 | BSA | 1.87 | m2 | + + + + + | 2021-12-25 00:00 | BSA | 1.9 | m2 | + + + + + | 2021-12-25 00:00 | heart_rate | 1|1| | completed | + + + + + | 2021-12-25 00:00 | heart_rate | 83 | /min | + + + + + | 2021-12-25 00:00 | height_metric | 165.1 | cm | + + + + + | 2021-12-25 00:00 | height_standard | 65 | in | + + + + + | 2021-12-25 00:00 | o2_saturation | 99 | % | + + + + + | 2021-12-25 00:00 | temperature_metric | 36.72 | C | | | | | | + + + + + | 2021-12-25 00:00 | | 98.1 | F | | | temperature_standar | | | | | d | | | + + + + + | 2021-12-25 00:00 | weight_metric | 79.85 | kg | + + + + + | 2021-12-25 00:00 | weight_standard | 176.04 | lb | + + + + + | 2022-03-17 00:00 | BMI | 28.0 | kg/m2 | + + + + + | 2022-03-17 00:00 | BP_diastolic | 74 | mmHg | + + + + + | 2022-03-17 00:00 | BP_systolic | 116 | mmHg | + + + + + | 2022-03-17 00:00 | BSA | 1.8 | m2 | + + + + + | 2022-03-17 00:00 | BSA | 1.84 | m2 | + + + + + | 2022-03-17 00:00 | heart_rate | 100 | /min | + + + + + | 2022-03-17 00:00 | heart_rate | 1|1| | completed | + + + + + | 2022-03-17 00:00 | height_metric | 165.1 | cm | + + + + + | 2022-03-17 00:00 | height_standard | 65 | in | + + + + + | 2022-03-17 00:00 | o2_saturation | 97 | % | + + + + + | 2022-03-17 00:00 | temperature_metric | 36.72 | C | | | | | | + + + + + | 2022-03-17 00:00 | | 98.1 | F | | | temperature_standar | | | | | d | | | + + + + + | 2022-03-17 00:00 | weight_metric | 76.37 | kg | + + + + + | 2022-03-17 00:00 | weight_standard | 168.38 | lb | + + + + + | 2022-06-22 00:00 | BMI | 29.6 | kg/m2 | + + + + + | 2022-06-22 00:00 | BP_diastolic | 76 | mmHg | + + + + + | 2022-06-22 00:00 | BP_systolic | 118 | mmHg | + + + + + | 2022-06-22 00:00 | BSA | 1.88 | m2 | + + + + + | 2022-06-22 00:00 | BSA | 1.9 | m2 | + + + + + | 2022-06-22 00:00 | heart_rate | 1|1| | completed | + + + + + | 2022-06-22 00:00 | heart_rate | 82 | /min | + + + + + | 2022-06-22 00:00 | height_metric | 165.1 | cm | + + + + + | 2022-06-22 00:00 | height_standard | 65 | in | + + + + + | 2022-06-22 00:00 | o2_saturation | 99 | % | + + + + + | 2022-06-22 00:00 | temperature_metric | 36.72 | C | | | | | | + + + + + | 2022-06-22 00:00 | | 98.1 | F | | | temperature_standar | | | | | d | | | + + + + + | 2022-06-22 00:00 | weight_metric | 80.76 | kg | + + + + + | 2022-06-22 00:00 | weight_standard | 178.05 | lb | + + + + + | 2022-09-09 00:00 | BMI | 29.3 | kg/m2 | + + + + + | 2022-09-09 00:00 | BP_diastolic | 76 | mmHg | + + + + + | 2022-09-09 00:00 | BP_systolic | 124 | mmHg | + + + + + | 2022-09-09 00:00 | BSA | 1.87 | m2 | + + + + + | 2022-09-09 00:00 | BSA | 1.9 | m2 | + + + + + | 2022-09-09 00:00 | heart_rate | 1|1| | completed | + + + + + | 2022-09-09 00:00 | heart_rate | 85 | /min | + + + + + | 2022-09-09 00:00 | height_metric | 165.1 | cm | + + + + + | 2022-09-09 00:00 | height_standard | 65 | in | + + + + + | 2022-09-09 00:00 | o2_saturation | 100 | % | + + + + + | 2022-09-09 00:00 | temperature_metric | 36.5 | C | | | | | | + + + + + | 2022-09-09 00:00 | | 97.7 | F | | | temperature_standar | | | | | d | | | + + + + + | 2022-09-09 00:00 | weight_metric | 79.84 | kg | + + + + + | 2022-09-09 00:00 | weight_standard | 176.03 | lb | + + + + + | 2022-09-21 00:00 | BMI | 29.3 | kg/m2 | + + + + + | 2022-09-21 00:00 | BP_diastolic | 98 | mmHg | + + + + + | 2022-09-21 00:00 | BP_systolic | 142 | mmHg | + + + + + | 2022-09-21 00:00 | BSA | 1.87 | m2 | + + + + + | 2022-09-21 00:00 | BSA | 1.9 | m2 | + + + + + | 2022-09-21 00:00 | heart_rate | 1|1| | completed | + + + + + | 2022-09-21 00:00 | height_metric | 165.1 | cm | + + + + + | 2022-09-21 00:00 | height_standard | 65 | in | + + + + + | 2022-09-21 00:00 | temperature_metric | 36.5 | C | | | | | | + + + + + | 2022-09-21 00:00 | | 97.7 | F | | | temperature_standar | | | | | d | | | + + + + + | 2022-09-21 00:00 | weight_metric | 79.83 | kg | + + + + + | 2022-09-21 00:00 | weight_standard | 176 | lb | + + + + + | 2022-12-04 00:00 | BMI | 28 | 1 | + + + + + | 2022-12-04 00:00 | BP_diastolic | 86 | mmHg | + + + + + | 2022-12-04 00:00 | BP_systolic | 116 | mmHg | + + + + + | 2022-12-04 00:00 | BSA | 1.8 | 1 | + + + + + | 2022-12-04 00:00 | heart_rate | 102 | /min | + + + + + | 2022-12-04 00:00 | heart_rate | 1|1| | completed | + + + + + | 2022-12-04 00:00 | height_metric | 165.1 | cm | + + + + + | 2022-12-04 00:00 | height_standard | 65 | in | + + + + + | 2022-12-04 00:00 | o2_saturation | 98 | % | + + + + + | 2022-12-04 00:00 | temperature_metric | 36.61 | C | | | | | | + + + + + | 2022-12-04 00:00 | | 97.9 | F | | | temperature_standar | | | | | d | | | + + + + + | 2022-12-04 00:00 | weight_metric | 76.2 | kg | + + + + + | 2022-12-04 00:00 | weight_standard | 168 | lb | + + + + +"
[2023-07-07 08:04] LABS: BASOPHILS 0.2 % (0-2); EOSINOPHILS 1.4 % (0-6); HEMOGLOBIN 11.1 g/dL (12.0-18.0); LYMPHOCYTES 18.6 % (24-44); MCH 29.7 (27-36); MCHC 34.8 g/dl (30-36); MCV 85.3 fl (81-99); MONOCYTES 6.3 % (0-12); NEUTROPHILS 73.5 % (39-80); PLATELET COUNT 177 K/uL (140-440); RBC 3.75 M/ul (4.3-5.7); RDW 13.6 (10.5-15.0)
[2023-07-07 12:04] LABS: BASOPHILS 0.4 % (0-2); EOSINOPHILS 0.7 % (0-6); HEMATOCRIT 32.6 % (35.0-50.0); HEMOGLOBIN 11.4 g/dL (12.0-18.0); LYMPHOCYTES 14.9 % (24-44); MCHC 35.1 g/dl (30-36); MCV 85.5 fl (81-99); MONOCYTES 5.1 % (0-12); NEUTROPHILS 78.9 % (39-80); PLATELET COUNT 177 K/uL (140-440); RBC 3.81 M/ul (4.3-5.7); RDW 13.2 (10.5-15.0)
[2023-07-07 12:16] LABS: INR 0.97 (0.80-1.30); PROTIME 12.5 Sec (11.2-14.2)
[2023-07-07 12:18] LABS: PARTIAL THROMBOPLASTIN TIME 29.5 Sec (22.9-41.3)
[2023-07-07 18:02] LABS: BASOPHILS 0.2 % (0-2); HEMATOCRIT 32.9 % (35.0-50.0); HEMOGLOBIN 11.4 g/dL (12.0-18.0); LYMPHOCYTES 8.2 % (24-44); MCH 29.9 (27-36); MCHC 34.6 g/dl (30-36); MCV 86.4 fl (81-99); MONOCYTES 1.5 % (0-12); NEUTROPHILS 90.1 % (39-80); PLATELET COUNT 173 K/uL (140-440); RBC 3.81 M/ul (4.3-5.7); RDW 13.3 (10.5-15.0)
[2023-07-07 18:10] LABS: PROTIME 12.8 Sec (11.2-14.2)
[2023-07-07 18:12] LABS: PARTIAL THROMBOPLASTIN TIME 29.2 Sec (22.9-41.3)
--- NOTE | 2023-07-07 18:34 | PR ---
[facility] [address] [place], [place] [address] Signed AP Progress Notes Datetime Report Generated by CPN: 07/07/2023 18:34 Chief Complaint: abruption ; stable PHYSICAL EXAM: [id number] General: Normal HEENT: Normal Neurologic: Normal Thyroid: Normal Cardiovascular: Normal Respiratory: Normal Breast: Not Done Back: Normal Abdomen: Normal Genitourinary Exam: Not Done Extremities: Normal Physical Exam Comments: No additional bleeding. Pt appears comfortable Impression: IUP @ 30w5d Abruption; stable Plan: Pt doing well. No additional bleeding. FHT Cat 1. No contractions. Labs stable. S/P 1st dose BMZ. Reviewed Rh+. No other concerns. Will continue monitoring, and consider d/c home tomorrow afternoon if no additional bleeding VITAL SIGNS: [id number] Vital Signs: Reviewed VS Notable Details: Mild maternal tachycardia EXAM: [id number] Contraction Comments: None MEMBRANES: [id number] FETUS A: [id number] Deceleration: None FHR Comments: Reassuring for dates. Presentation: Vertex (Annotations: Data stored by N on behalf of user) FETUS B: [id number] PROGRESS NOTES: [id number] Signing Physician: Raman Gross DO Copies: *Electronically Signed* 07/07/23 1832 RAMAN GROSS (CIELO) DO PATIENT NAME: SHARAN LUNA PROGRESS NOTE DATE OF : 95 PHYSICIAN: RAMAN GROSS) DO RPT #: [id number] REPORT IS CONFIDENTIAL AND NOT TO BE RELEASED WITHOUT AUTHORIZATION [facility] [address], [place] [address] Signed ~ *Electronically Signed* 07/07/23 1834 RAMAN GROSS) DO PATIENT NAME: SHARAN LUNA PROGRESS NOTE DATE OF : 95 PHYSICIAN: RAMAN GROSS) DO RPT #: [id number] REPORT IS CONFIDENTIAL AND NOT TO BE RELEASED WITHOUT AUTHORIZATION
[2023-07-08 00:22] LABS: MCHC 34.4 g/dl (30-36); RBC 3.69 M/ul (4.3-5.7); RDW 13.4 (10.5-15.0)
[2023-07-08 00:25] LABS: BASOPHILS 0.4 % (0-2); LYMPHOCYTES 9.6 % (24-44); MCH 29.8 (27-36); MCV 86.6 fl (81-99); MONOCYTES 4.1 % (0-12); NEUTROPHILS 85.9 % (39-80); PLATELET COUNT 155 K/uL (140-440)
[2023-07-08 00:30] LABS: INR 1.03 (0.80-1.30); PROTIME 13.1 Sec (11.2-14.2)
[2023-07-08 00:32] LABS: PARTIAL THROMBOPLASTIN TIME 28.6 Sec (22.9-41.3)
[2023-07-08 05:32] LABS: BASOPHILS 0.1 % (0-2); HEMATOCRIT 33.4 % (35.0-50.0); HEMOGLOBIN 11.5 g/dL (12.0-18.0); LYMPHOCYTES 9.6 % (24-44); MCH 29.5 (27-36); MCHC 34.3 g/dl (30-36); MONOCYTES 5.3 % (0-12); PLATELET COUNT 207 K/uL (140-440); RBC 3.88 M/ul (4.3-5.7); RDW 13.6 (10.5-15.0)
[2023-07-08 05:39] LABS: INR 1.02 (0.80-1.30)
[2023-07-08 06:29] LABS: PARTIAL THROMBOPLASTIN TIME 28.3 Sec (22.9-41.3)
--- NOTE | 2023-07-08 06:38 | PR ---
[facility] [address] [facility] [place], [place] [address] Signed AP Progress Notes Datetime Report Generated by CPN: 07/08/2023 06:38 Chief Complaint: Abruption PHYSICAL EXAM: [id number] General: Normal HEENT: Normal Neurologic: Normal Thyroid: Normal Cardiovascular: Normal Respiratory: Normal Breast: Not Done Back: Normal Abdomen: Normal Genitourinary Exam: Not Done Extremities: Normal Physical Exam Comments: No additional bleeding. Fundus soft nontender. Cat 1 tracing Impression: IUP @ 30w6d Stable abruption Rh+ Plan: Continue monitoring 2nd dose of betamethasone today Consider d/c home this afternoon Reviewed s/sx worsening abuprtion and indications for emergent evaluation. Will coordinate Maternal medicine VITAL SIGNS: [id number] Vital Signs: Reviewed VS Notable Details: Mild maternal tachycardia EXAM: [id number] Contraction Comments: None MEMBRANES: [id number] FETUS A: [id number] Deceleration: None FHR Comments: Reassuring for dates. Presentation: Vertex (Annotations: Data stored by N on behalf of user) FETUS B: [id number] PROGRESS NOTES: [id number] Signing Physician: Raman Gross DO *Electronically Signed* 07/08/23 0638 RAMAN GROSS (CIELO) DO PATIENT NAME: SHARAN LUNA PROGRESS NOTE DATE OF : 95 PHYSICIAN: RAMAN GROSS (JD) DO RPT #: [id number] REPORT IS CONFIDENTIAL AND NOT TO BE RELEASED WITHOUT AUTHORIZATION [facility] [address] [place], [place] [address] Signed Copies: ~ *Electronically Signed* 07/08/23 0638 RAMAN GROSS) DO PATIENT NAME: SHARAN LUNA PROGRESS NOTE DATE OF : 95 PHYSICIAN: RAMAN GROSS (JD) DO RPT #: [id number] REPORT IS CONFIDENTIAL AND NOT TO BE RELEASED WITHOUT AUTHORIZATION
--- NOTE | 2023-07-08 13:07 | NUR ---
EXERCISED MINISTRY OF PRESENCE PT AND TALKED OF CONCERNS AND PLANS FOR REMAINDER OF PREGANCY. DECLINED PRAYER AT BEDSIDE. PRAYED SILENT PRAYER FOR SAFETY OF MOM AND BABY.
== END 2023-07-08 12:25 | disposition home or self-care (01) ==
LOC: FBCO 06:45 → FBC 10:00
PROVIDERS: ADMIT Obstetrics & Gynecology; ATTEND Obstetrics & Gynecology
DX: O44.53 Low lying placenta with hemorrhage, third trimester (principal); Z3A.30 30 weeks gestation of pregnancy
CPT/HCPCS: 36415; 76815; 76817; 85025; 85384; 85610; 85730; 96372; G0378; J0702

== ENCOUNTER 2023-08-07 04:36 | Inpatient (IN) | payer OTHER ==
[~2023-08-07] VITALS: Ht 167.6 cm; Wt 89.8 kg
[2023-08-07 05:39] LABS: BASOPHILS 0.5 % (0-2); EOSINOPHILS 1.5 % (0-6); HEMATOCRIT 35.6 % (35.0-50.0); HEMOGLOBIN 12.3 g/dL (12.0-18.0); LYMPHOCYTES 20.2 % (24-44); MCH 29.8 (27-36); MCHC 34.6 g/dl (30-36); MONOCYTES 6.8 % (0-12); PLATELET COUNT 136 K/uL (140-440); RBC 4.14 M/ul (4.3-5.7); RDW 13.7 (10.5-15.0)
[2023-08-07 06:15] LABS: ABO A; RH POSITIVE
[2023-08-07 06:16] LABS: ANTIBODY SCREEN NEGATIVE
[2023-08-07 08:18] LABS: AMPHETAMINES, UR POSITIVE (NEGATIVE); BARBITURATES, UR NEGATIVE (NEGATIVE); BENZODIAZEPINES, UR NEGATIVE (NEGATIVE); BUPRENORPHINE,UR NEGATIVE (NEGATIVE); COCAINE, UR NEGATIVE (NEGATIVE); MARIJUANA (THC), UR NEGATIVE (NEGATIVE); MDMA, UR NEGATIVE (NEGATIVE); METHADONE, UR NEGATIVE (NEGATIVE); METHAMPHETAMINE, UR NEGATIVE (NEGATIVE); OPIATES, UR NEGATIVE (NEGATIVE); OXYCODONE, UR NEGATIVE (NEGATIVE); PHENCYCLIDINE, UR NEGATIVE (NEGATIVE); TRICYCLIC ANTIDEPRESSANT, UR NEGATIVE (NEGATIVE)
[2023-08-07 08:20] LABS: BILIRUBIN, URINE NEGATIVE (negative); BLOOD/HGB, URINE LARGE (Negative); KETONE, URINE NEGATIVE (Negative); LEUK ESTERASE, URINE NEGATIVE (negative); NITRITE, URINE NEGATIVE (negative)
[2023-08-07 08:28] LABS: CRYSTALS, URINE CALCIUM OXALATE 1+ (0-1+); EPITHELIAL CELLS, URINE SQUAMOUS 2+ /lpf (0-1+)
[2023-08-07 08:29] LABS: BACTERIA, URINE RARE /hpf (negative); CASTS, URINE NONE SEEN \\lpf; COLLECTION TYPE, URINE VOID; REFLEX CULTURE, URINE No (No)
[2023-08-07 08:33] LABS: INFLUENZA B NAA NEGATIVE (NEGATIVE); RESPIRATORY SYNCYTIAL VIR NAA NEGATIVE (NEGATIVE)
[2023-08-07 08:56] VITALS: BP 122/82
[2023-08-07 12:13] VITALS: BP 113/71
--- NOTE | 2023-08-08 11:03 | PR ---
[facility] [address] [place], [place] [address] Signed AP Progress Notes Datetime Report Generated by CPN: 08/08/2023 11:03 Chief Complaint: Placenta previa with vaginal bleeding PHYSICAL EXAM: [id number] General: Normal HEENT: Normal Neurologic: Normal Thyroid: Normal Cardiovascular: Normal Respiratory: Normal Breast: Not Done Back: Normal Abdomen: Normal Genitourinary Exam: Normal Extremities: Normal Physical Exam Comments: Minimal bleeding since yesterday afternoon. c/o headache she states possibly due to not taking her adderall yesterday. Urinalysis returned as showing trichomonas. Impression: 28 yo @ 35w2d with placenta previa. Minimal bleeding since yesterday afternoon. Plan: -Spoke with Dr. Basilio of [facility] who recommends patient remain in house until 36 wks at which time she recommends section -Spoke with patient. Patient amenable to plan -Vaginal swab performed for trichomonas testing -Saline lock IV -Remove IV if bleeding remains minimal -Type and screen ordered for morning to keep up to date VITAL SIGNS: [id number] Vital Signs: Reviewed VS Notable Details: Mild maternal tachycardia EXAM: [id number] Dilatation: 0.5 Station: -4 Contraction Comments: every 4-6, beginning to space out MEMBRANES: [id number] FETUS A: [id number] FHR Baseline: 140 Variability: Moderate 6-25bpm Accelerations: 15X15 *Electronically Signed* 08/08/23 1103 SKIP DAMON MD PATIENT NAME: SHARAN LUNA PROGRESS NOTE DATE OF : 95 PHYSICIAN: SKIP DAMON MD RPT #: [id number] REPORT IS CONFIDENTIAL AND NOT TO BE RELEASED WITHOUT AUTHORIZATION [address] [address] Signed Deceleration: None FHR Category: Category I FHR Comments: Reassuring for dates. Presentation: Vertex FETUS B: [id number] PROGRESS NOTES: [id number] Signing Physician: Skip Damon MD Copies: ~ *Electronically Signed* 08/08/23 1103 SKIP DAMON MD PATIENT NAME: SHARAN LUNA PROGRESS NOTE DATE OF : 95 PHYSICIAN: SKIP DAMON MD RPT #: [id number] REPORT IS CONFIDENTIAL AND NOT TO BE RELEASED WITHOUT AUTHORIZATION
[2023-08-09 05:40] LABS: HEMATOCRIT 31.6 % (35.0-50.0); MCHC 34.9 g/dl (30-36); MCV 85.7 fl (81-99); RBC 3.68 M/ul (4.3-5.7); RDW 13.2 (10.5-15.0)
[2023-08-09 07:19] LABS: ABO A; RH POSITIVE
[2023-08-09 07:20] LABS: ANTIBODY SCREEN NEGATIVE
--- NOTE | 2023-08-09 09:53 | PR ---
[facility] [address] [place], [place] [address] Signed AP Progress Notes Datetime Report Generated by TOM: 08/09/2023 09:53 Chief Complaint: Placenta previa with vaginal bleeding PHYSICAL EXAM: [id number] General: Normal HEENT: Normal Neurologic: Normal Thyroid: Normal Cardiovascular: Normal Respiratory: Normal Breast: Not Done Back: Normal Abdomen: Normal Genitourinary Exam: Normal Extremities: Normal Physical Exam Comments: S: 28 yo with placenta previa. She has had No bleeding since yesterday. Old, dark blood streaks on pad. Denies CP, SOB, F/C, N/V, RUQ pain, changes in vision. Tolerating regular diet, ambulating, voiding, no current pain. Reported MENDEZ last night possibly due to no caffeine and not taking Adderall. Required no medication for treatment. Impression: S: 28 yo with placenta previa. Bleeding resolved. Plan: Doing well Continue inpatient monitoring Plan for primary section on 08/13/23 Repeat urine GC/CT today, Aptima test will take 3-4 days to return and patient requesting repeat testing. VITAL SIGNS: [id number] Vital Signs: Reviewed VS Notable Details: Mild maternal tachycardia EXAM: [id number] Dilatation: 0.5 Station: -4 Contraction Comments: every 4-6, beginning to space out MEMBRANES: [id number] Membranes: Intact FETUS A: [id number] FHR Baseline: 140 Variability: Moderate 6-25bpm Accelerations: 15X15 *Electronically Signed* 08/09/23 0953 SKIP DAMON MD PATIENT NAME: SHARAN LUNA PROGRESS NOTE DATE OF : 95 PHYSICIAN: SKIP DAMON MD RPT #: [id number] REPORT IS CONFIDENTIAL AND NOT TO BE RELEASED WITHOUT AUTHORIZATION [address] [place], [place] [address] Signed Deceleration: None FHR Category: Category I FHR Comments: Reassuring for dates. Presentation: Vertex FETUS B: [id number] PROGRESS NOTES: [id number] Signing Physician: Skip Damon MD Copies: ~ *Electronically Signed* 08/09/23 0953 SKIP DAMON MD PATIENT NAME: SHARAN LUNA PROGRESS NOTE DATE OF : 95 PHYSICIAN: SKIP DAMON MD RPT #: [id number] REPORT IS CONFIDENTIAL AND NOT TO BE RELEASED WITHOUT AUTHORIZATION
[2023-08-09 12:02] LABS: N. GONORRRHOEAE BY PCR NOT DETECTED (NOT DETECT)
--- NOTE | 2023-08-10 09:33 | NUR ---
PT IN [facility]. I EXERCISED MINISTRY OF PRESENCE TALKED OF EXPECTATIONS COMPARED TO REALITY. GAVE PT ACTIVITY BOOK AND CONTACT CARD. PRAYED FOR SAFE DELIVERY AND CESSATION OF WORRY.
--- NOTE | 2023-08-10 10:57 | PR ---
[facility] [address] [place], [place] [address] Signed AP Progress Notes Datetime Report Generated by CPN: 08/10/2023 10:57 Chief Complaint: Placenta previa with vaginal bleeding PHYSICAL EXAM: [id number] General: Normal HEENT: Normal Neurologic: Normal Thyroid: Normal Cardiovascular: Normal Respiratory: Normal Breast: Not Done Back: Normal Abdomen: Normal Genitourinary Exam: Normal Extremities: Normal Physical Exam Comments: Doing well. No overnight events or concerns. Denies MENDEZ, CP, SOB,F/C, N/V, RUQ pain, changes in vision, vaginal bleeding. Tolerating regular diet, ambulating, voding, pain controlled. Impression: 28 yo at 35w3d with placenta previa. Currently with no bleeding. Plan: Continue inpatient observation. Lopez for primary cestion on 08-16-23 unless there is further bleeding or non-reassuring monitoring. Type and screen to be kept up to date. Next draw tomorrow morning. VITAL SIGNS: [id number] Vital Signs: Reviewed VS Notable Details: Mild maternal tachycardia EXAM: [id number] Dilatation: 0.5 Station: -4 Contraction Comments: every 4-6, beginning to space out MEMBRANES: [id number] Membranes: Intact FETUS A: [id number] FHR Baseline: 140 Variability: Moderate 6-25bpm Accelerations: 15X15 Deceleration: None *Electronically Signed* 08/10/23 Camryn7 ANGEL PAEZ MD PATIENT NAME: SHARAN LUNA PROGRESS NOTE DATE OF : 95 PHYSICIAN: ANGEL PAEZ MD RPT #: [id number] REPORT IS CONFIDENTIAL AND NOT TO BE RELEASED WITHOUT AUTHORIZATION [address], [place] [address] Signed FHR Category: Category I FHR Comments: Reassuring for dates. Presentation: Vertex FETUS B: [id number] PROGRESS NOTES: [id number] Signing Physician: Angel Paez MD Copies: ~ *Electronically Signed* 08/10/23 1057 ANGEL PAEZ MD PATIENT NAME: SHARAN LUNA PROGRESS NOTE DATE OF : 95 PHYSICIAN: ANGEL PAEZ MD RPT #: [id number] REPORT IS CONFIDENTIAL AND NOT TO BE RELEASED WITHOUT AUTHORIZATION
--- NOTE | 2023-08-11 08:26 | PR ---
[facility] [address] [place], [place] [address] Signed AP Progress Notes Datetime Report Generated by TOM: 08/11/2023 08:25 Chief Complaint: Placenta previa with vaginal bleeding PHYSICAL EXAM: [id number] General: Normal HEENT: Normal Neurologic: Normal Thyroid: Normal Cardiovascular: Normal Respiratory: Normal Breast: Not Done Back: Normal Abdomen: Normal Genitourinary Exam: Normal Extremities: Normal Physical Exam Comments: Doing well. No overnight events or concerns. Denies MENDEZ, CP, SOB,F/C, N/V, RUQ pain, changes in vision, vaginal bleeding. Tolerating regular diet, ambulating, voding, pain controlled. Impression: 28 yo @ 35w5d with placenta previa. Doing well. No new vaginal bleeding. Plan: Continue current management Plan for Primary section on 08/16/23 unless new bleeding or concerns for wellbeing arise. Type and screen every 2 days. Will have 2 units crossed and on hold. Current disposition: In house. VITAL SIGNS: [id number] Vital Signs: Reviewed VS Notable Details: Mild maternal tachycardia EXAM: [id number] Dilatation: 0.5 Station: -4 Contraction Comments: every 4-6, beginning to space out MEMBRANES: [id number] Membranes: Intact FETUS A: [id number] FHR Baseline: 140 *Electronically Signed* 08/11/23 0825 SKIP DAMON MD PATIENT NAME: SHARAN LUNA PROGRESS NOTE DATE OF : 95 PHYSICIAN: SKIP DAMON MD RPT #: [id number] REPORT IS CONFIDENTIAL AND NOT TO BE RELEASED WITHOUT AUTHORIZATION [facility] [address] [place], [place] [address] Signed Variability: Moderate 6-25bpm Accelerations: 15X15 Deceleration: None FHR Category: Category I FHR Comments: Reassuring for dates. Presentation: Vertex FETUS B: [id number] PROGRESS NOTES: [id number] Signing Physician: Skip Damon MD Copies: ~ *Electronically Signed* 08/11/23 0825 SKIP DAMON MD PATIENT NAME: SHARAN LUNA PROGRESS NOTE DATE OF : 95 PHYSICIAN: SKIP DAMON MD RPT #: [id number] REPORT IS CONFIDENTIAL AND NOT TO BE RELEASED WITHOUT AUTHORIZATION
[2023-08-12 06:37] LABS: ABO A; ANTIBODY SCREEN NEGATIVE; IS CROSSMATCH COMPATIBLE; RH POSITIVE
--- NOTE | 2023-08-12 10:55 | PR ---
[facility] [address] [facility] [place], [place] [address] Signed AP Progress Notes Datetime Report Generated by CPN: 08/12/2023 10:54 Chief Complaint: Placenta previa with vaginal bleeding. PHYSICAL EXAM: [id number] General: Normal HEENT: Normal Neurologic: Normal Thyroid: Normal Cardiovascular: Normal Respiratory: Normal Breast: Not Done Back: Normal Abdomen: Normal Genitourinary Exam: Normal Extremities: Normal Physical Exam Comments: Denies MENDEZ, CP, SOB, F/C, N/V, RUQ pain, changes in vision, vaginal bleeding or discharge, LOF. +FM. Fundus firm. Non-tender to palpation. Impression: 28 yo @ 35w6d with placenta previa. No further vagiinal bleeding since admision. Plan: Continue current management Plan for Primary section on 08/16/23 unless new bleeding or concerns for wellbeing arise. Type and screen every 2 days. Will have 2 units crossed and on hold. Current disposition: In house. VITAL SIGNS: [id number] Vital Signs: Reviewed VS Notable Details: Mild maternal tachycardia EXAM: [id number] Dilatation: 0.5 Station: -4 Contraction Comments: every 4-6, beginning to space out MEMBRANES: [id number] Membranes: Intact FETUS A: [id number] *Electronically Signed* 08/12/23 SKIP POLLARD MD PATIENT NAME: SHARAN LUNA PROGRESS NOTE DATE OF : 95 PHYSICIAN: SKIP PAEZ MD RPT #: [id number] REPORT IS CONFIDENTIAL AND NOT TO BE RELEASED WITHOUT AUTHORIZATION [facility] [address] [facility] [place] [address] Signed FHR Baseline: 140 Variability: Moderate 6-25bpm Accelerations: 15X15 Deceleration: None FHR Category: Category I FHR Comments: Reassuring for dates. Presentation: Vertex FETUS B: [id number] PROGRESS NOTES: [id number] Signing Physician: Skip Paez MD Copies: ~ *Electronically Signed* 08/12/23 1054 SKIP PAEZ MD PATIENT NAME: SHARAN LUNA PROGRESS NOTE DATE OF : 95 PHYSICIAN: SKIP PAEZ MD RPT #: [id number] REPORT IS CONFIDENTIAL AND NOT TO BE RELEASED WITHOUT AUTHORIZATION
[2023-08-13 08:10] LABS: HEMATOCRIT 36.8 % (35.0-50.0); HEMOGLOBIN 12.9 g/dL (12.0-18.0); MCH 29.8 (27-36); MCV 85.3 fl (81-99); RBC 4.32 M/ul (4.3-5.7); RDW 13.3 (10.5-15.0)
[2023-08-13 08:36] LABS: HEMATOCRIT 31.7 % (35.0-50.0); HEMOGLOBIN 11.2 g/dL (12.0-18.0); MCH 30.1 (27-36); MCHC 35.2 g/dl (30-36); MCV 85.4 fl (81-99); RBC 3.71 M/ul (4.3-5.7); RDW 13.3 (10.5-15.0)
[2023-08-13 08:38] LABS: AMPHETAMINES, URINE NEGATIVE (NEGATIVE); BARBITURATES, URINE NEGATIVE (NEGATIVE); BENZODIAZEPINE, URINE NEGATIVE (NEGATIVE); BUPRENORPHINE, URINE NEGATIVE (NEGATIVE); CANNABINOID, URINE NEGATIVE (NEGATIVE); COCAINE, URINE NEGATIVE (NEGATIVE); ECSTASY, URINE NEGATIVE (NEGATIVE); FENTANYL, URINE NEGATIVE (NEGATIVE); METHADONE, URINE NEGATIVE (NEGATIVE); OPIATES, URINE NEGATIVE (NEGATIVE); OXYCODONE, URINE NEGATIVE (NEGATIVE); PHENCYCLIDINE, URINE NEGATIVE (NEGATIVE)
--- NOTE | 2023-08-13 09:19 | PR ---
[facility] [address] [place], [place] [address] Signed AP Progress Notes Datetime Report Generated by CPN: 08/13/2023 09:19 Chief Complaint: Placenta previa with vaginal bleeding PHYSICAL EXAM: [id number] General: Normal HEENT: Normal Neurologic: Normal Thyroid: Normal Cardiovascular: Normal Respiratory: Normal Breast: Not Done Back: Normal Abdomen: Normal Genitourinary Exam: Normal Extremities: Normal Physical Exam Comments: S: 28 yo @ 36w0d with placenta previa, admitted for vaginal bleeding. Doing well. Had another episode of bleeding this morning following passing of 50 cent piece sized blood clot. Denies, any concerns or complaints at this time. O: AFVSS Abd: Soft, fundus firm. Size equal to dates. Musc: THOMAS. No C/C/E. Impression: 28 yo @ 36w0d with placent previa. New episode of vaginal bleeding this morning. Plan: Will coordinate with OR to move forward with section today. VITAL SIGNS: [id number] Vital Signs: Reviewed VS Notable Details: Mild maternal tachycardia EXAM: [id number] Dilatation: 0.5 Station: -4 Contraction Comments: every 4-6, beginning to space out MEMBRANES: [id number] Membranes: Intact FETUS A: [id number] FHR Baseline: 140 Variability: Moderate 6-25bpm Accelerations: 15X15 *Electronically Signed* 08/13/23 0919 SKIP DAMON MD PATIENT NAME: SHARAN LUNA PROGRESS NOTE DATE OF : 95 PHYSICIAN: SKIP DAMON MD RPT #: [id number] REPORT IS CONFIDENTIAL AND NOT TO BE RELEASED WITHOUT AUTHORIZATION [facility] [address] [place], [place] [address] Signed Deceleration: None FHR Category: Category I FHR Comments: Reassuring for dates. Presentation: Vertex FETUS B: [id number] PROGRESS NOTES: [id number] Signing Physician: Skip Damon MD Copies: ~ *Electronically Signed* 08/13/23 0919 SKIP DAMON MD PATIENT NAME: SHARAN LUNA PROGRESS NOTE DATE OF : 95 PHYSICIAN: SKIP DAMON MD RPT #: [id number] REPORT IS CONFIDENTIAL AND NOT TO BE RELEASED WITHOUT AUTHORIZATION
--- NOTE | 2023-08-13 19:19 | NUR ---
08/13/231918 Courtney Sinha 1910- PT ARRIVES TO [facility] ROOM #104 ALERT AND ORIENTED WITH BABY SKIN TO SKIN. RESP EVEN AND UNLABORED. OXYGEN SAT HIGH 90'S ON RA. PT DENIES ANY PAIN OR NAUSEA. 16G TO RIGHT AC INFUSING LR WITH 40 UNITS OF PITOCIN. CLEAR YELLOW URINE DRAINING INTO THE TORRES BAG. ALIA GIVENS RN AT THE BEDSIDE AND ASSISING WITH BABY. PT'S AT THE BEDSIDE.
[2023-08-13 19:46] VITALS: BP 124/70
[2023-08-14 05:28] LABS: HEMOGLOBIN 8.1 g/dL (12.0-18.0); MCH 29.9 (27-36); MCV 85.3 fl (81-99); RBC 2.69 M/ul (4.3-5.7); RDW 13.3 (10.5-15.0)
--- NOTE | 2023-08-14 09:22 | PR ---
[facility] [address] [place], [place] [address] Signed PP Progress Notes Datetime Report Generated by CPN: 08/14/2023 09:22 SUBJECTIVE: [id number] Pain: Within Normal Limits Nausea/Vomiting: Denies Flatus: No Bowel Movement: No Vital Signs: [id number] Vital Signs: Reviewed Notable Details: tachycardia Cardiovascular: Not Done Respiratory: Not Done Abdomen/Uterus: Normal Lochia: Normal Vulva/Perineum: Not Done Breasts: Not Done CVA Tenderness: Not Done Extremities: Not Done Incision: Not Applicable Exam Comments: Abd: Soft, non distended. Appropriately tender to palpation. Fundus firm, below umbilicus. IMPRESSION/PLAN/PROCEDURES: [id number] Impression: Normal Progression Plan: Continue Present Management Procedures: None Progress Notes: Began bleeding vaginally after surgery. Received 1000 mg TXA, 0.2 mg Methergine IM, started on Methergine 0.2mg PO Q 6 hours. Total bleeding at this time 1278 cc. Urine output has been on the lower side of normal overnight. Denies MENDEZ, CP, SOB, F/C, N/V, RUQ pain, changes in vision, vaginal discharge. Tolerating regular diet, not yet ambulating, voiding per [place], pain controlled. Continue with Methergine PO. Continue with IVF until able to ambulate and urine output increases. Repeat hemogram at 1700 hrs. Disposition: In house Signing Physician: Skip Paez MD *Electronically Signed* 08/14/23 0922 SKIP PAEZ MD PATIENT NAME: SHARAN LUNA PROGRESS NOTE DATE OF : 95 PHYSICIAN: SKIP PAEZ MD RPT #: [id number] REPORT IS CONFIDENTIAL AND NOT TO BE RELEASED WITHOUT AUTHORIZATION [address], [place] [address] Signed Copies: ~ *Electronically Signed* 08/14/23 0922 SKIP PAEZ MD PATIENT NAME: SHARAN LUNA PROGRESS NOTE DATE OF : 95 PHYSICIAN: SKIP PAEZ MD RPT #: [id number] REPORT IS CONFIDENTIAL AND NOT TO BE RELEASED WITHOUT AUTHORIZATION
[2023-08-14 17:07] LABS: HEMATOCRIT 21.9 % (35.0-50.0); HEMOGLOBIN 7.9 g/dL (12.0-18.0); MCH 30.7 (27-36); MCV 85.5 fl (81-99); RBC 2.56 M/ul (4.3-5.7); RDW 13.7 (10.5-15.0)
--- NOTE | 2023-08-15 10:20 | PR ---
[facility] [address] [place], [place] [address] Signed PP Progress Notes Datetime Report Generated by TOM: 08/15/2023 10:20 SUBJECTIVE: [id number] Pain: Within Normal Limits Nausea/Vomiting: Denies Flatus: Yes Bowel Movement: Yes Vital Signs: [id number] Vital Signs: Reviewed Notable Details: continue tachycardia with exertion. Cardiovascular: Not Done Respiratory: Not Done Abdomen/Uterus: Normal Lochia: Normal Vulva/Perineum: Not Done Breasts: Not Done CVA Tenderness: Not Done Extremities: Normal Incision: Normal Progress: Normal Exam Comments: Abd: Soft, appropriately TTP. Fundus firm, below umbilicus. Incision C/D/I without erythema or drainage. [place] in place. IMPRESSION/PLAN/PROCEDURES: [id number] Impression: Normal Progression Plan: Discharge Procedures: None Progress Notes: S: 28 yo s/p primary section for placenta previa. POD #2. Doing well. Denies MENDEZ, lightheadedness/dizziness, CP, SOB, F/C, N/V, RUQ pain, changes in vision, vaginal discharge. Bleeding is slowing. Tolerating regular diet, ambulating, voiding on own, +BM, pain controlled. A/P: Doing well. Discussed continued tachycardia likely due to hemorrhage. Despite this, patient would like to D/C home. Discussed montioring for signs of worsening tachycardia, developing of chest pain or shorness of breath, or light headedness or dizziness. She gave verbal understanding. Will discharge home today. Signing Physician: Skip Damon MD *Electronically Signed* 08/15/23 1020 SKIP DAMON MD PATIENT NAME: SHARAN LUNA PROGRESS NOTE DATE OF : 95 PHYSICIAN: SKIP DAMON MD RPT #: [id number] REPORT IS CONFIDENTIAL AND NOT TO BE RELEASED WITHOUT AUTHORIZATION
--- NOTE | 2023-08-16 07:26 | OR ---
[facility] [address], [place] [address] Signed DATE OF OPERATION: SURGEON: Philippe Bahena AMMUNITION ASSEMBLY LABORER SURGEON: Sulema YOUNG PREOPERATIVE DIAGNOSIS: 28-year-old at 36 weeks and 0 days with placenta previa and vaginal bleeding. POSTOPERATIVE DIAGNOSIS: 28-year-old at 36 weeks and 0 days with placenta previa and vaginal bleeding. PROCEDURE PERFORMED: Primary low-transverse section. ANESTHESIA: Spinal. ESTIMATED BLOOD LOSS: 500 mL. IV FLUIDS: 1000 mL of lactated Ringer's. URINE OUTPUT: 100 mL of clear urine at the end of the procedure. COMPLICATIONS: None. FINDINGS: Male born in cephalic presentation in the JOSE position. weight 2670 g. Apgars of 8 and 9. Normal uterus, tubes, and ovaries. INDICATIONS FOR THE PROCEDURE: This is a 28-year-old, , who presented approximately 1 week ago with vaginal bleeding. This had been her second bleed during this . She had previously been administered corticosteroids for lung maturity. She was admitted to the hospital for observation for planned cesarian section at 36 weeks. On the morning of the operation, the patient reported passage of a blood clot with new bright Electronically Signed By: SKIP DAMON MD 08/16/23 0726 PATIENT NAME: SHARAN LUNA OPERATIVE REPORT DATE OF : [birth year] REPORT #: [id number] PHYSICIAN: SKIP DAMON MD PCP: NASIM AGUAYO REPORT IS CONFIDENTIAL AND NOT TO BE RELEASED WITHOUT AUTHORIZATION [facility] [address], [place] [address] Signed red bleeding. Decision was made at that time to forego planned cesarian section on the following Wednesday and perform cesarian section today. The procedure was described to the patient in detail including possible risk of bleeding, infection, injury to surrounding organs, and possible need for further surgery. Informed consent had been obtained on admission prior to proceeding with the procedure. OPERATIVE NOTE: The patient was taken to the operating room, where a time-out was performed to confirm the correct patient and correct procedure. Spinal anesthesia was adequately established and prophylactic IV antibiotics were administered. The patient was then placed in the dorsal supine position with the left tilt of the hips. Pressure points were padded. The patient was prepped and draped in the usual sterile fashion for a Pfannenstiel skin incision. An incision was made in the skin with a surgical scalpel and a sharp dissection was carried out over the subsequent layers including fascia, followed by the Bovie electrocautery for hemostasis. The fascia was incised at the midline and the fascial incision was extended bilaterally using curved Goncalves scissors. The inferior edge of the fascial incision was grasped with Matheus clamps, tented up and the underlying rectus muscles were dissected off bluntly and sharply using the curved Goncalves scissors. Attention was then turned to the superior edge, which was grasped with the Matheus clamps, tented up and the underlying rectus muscles were dissected off bluntly and sharply using the curved Goncalves scissors. The rectus muscles were then divided in the midline and the peritoneum was identified, tented up with hemostats at its upper margin taking care to avoid the bladder and then entered sharply with Metzenbaum scissors. The peritoneal incision was extended superiorly and inferiorly digitally with good visualization of the bladder. The vesicouterine peritoneum was identified and was below the area for uterine incision. A bladder flap was not created. A transverse incision was then made in the lower uterine segment using the scalpel. The uterine incision was extended bilaterally digitally. The head was identified, elevated into the abdomen and delivered through the uterine incision with the assistance of fundal pressure. The infant was examined for nuchal cord. No nuchal cord was identified. The was then delivered with traction and the assistance of fundal pressure. The responded with a good cry and no bulb suction of the mouth or nose was needed. On delivery, the cord was clamped and cut. The infant was then passed off the table to the clearing supervisor for further care. Cord blood was collected for analysis and routine blood testing. Cord gases were not Electronically Signed By: SKIP DAMON MD 08/16/23 0726 PATIENT NAME: SHARAN LUNA OPERATIVE REPORT DATE OF : [birth year] REPORT #: [id number] PHYSICIAN: SKIP DAMON MD PCP: NASIM AGUAYO REPORT IS CONFIDENTIAL AND NOT TO BE RELEASED WITHOUT AUTHORIZATION [address] [address] Signed obtained. The placenta delivered spontaneously and intact with a three-vessel cord. Oxytocin was administered by IV infusion to enhance uterine contractions. The uterus was cleared off all clots and remaining products of conception. The uterine incision was reapproximated using 0 Monocryl in a running locked fashion. A second imbricating layer of 0 Monocryl was applied. Non-hemostatic areas were reinforced using 0 Monocryl and [id number] sutures. Good hemostasis was confirmed. The area was then irrigated and no bleeding was noted. The muscular layer was closed using 2-0 Vicryl in a running non-locked fashion. Prior to closure of the muscular layer, the peritoneum was closed using 0 Vicryl in a running non-locked fashion. The fascia was reapproximated using 0 Vicryl in a non-locked fashion. The subcutaneous tissue was then closed using 0 Vicryl in a running non-locked fashion. The skin was reapproximated using joanne. All needle, sponge, and instrument counts were noted to be correct x2 at the end of the procedure. The patient tolerated the procedure well and was transferred to the recovery room in stable condition. Philippe Bahena CAF/MODL /[id number] Copies: ~ Electronically Signed By: SKIP DAMON MD 08/16/23 0726 PATIENT NAME: SHARAN LUNA OPERATIVE REPORT DATE OF : [birth year] REPORT #: [id number] PHYSICIAN: SKIP DAMON MD PCP: NASIM AGUAYO REPORT IS CONFIDENTIAL AND NOT TO BE RELEASED WITHOUT AUTHORIZATION
== END 2023-08-15 14:05 | disposition home or self-care (01) | DRG 787 ==
LOC: FBCO 04:36 → FBC 06:32 → FBCO 06:32 → FBC 06:32
PROVIDERS: ADMIT Obstetrics & Gynecology; ATTEND Obstetrics & Gynecology
PROC: 10D00Z1 Extraction of Products of Conception, Low, Open Approach (ICD-10-PCS; principal; 2023-08-13 17:42)
DX: O44.03 Complete placenta previa NOS or without hemorrhage, third trimester (principal); D62 Acute posthemorrhagic anemia; Z37.0 Single live birth; Z3A.36 36 weeks gestation of pregnancy; O90.81 Anemia of the puerperium; O99.891 Other specified diseases and conditions complicating pregnancy; R00.0 Tachycardia, unspecified
CPT/HCPCS: 01961; 36415; 59025; 76815; 76817; 76942; 80307; 81001; 85025; 85027; 86850; 86900; 86901; 86922; 87502; A9270; J0690; J1885; J2210; J2274; J2405; J2590; J7121; U0002